=== PATIENT | male | born 1985 ===

== ENCOUNTER 2016-11-06 18:03 | Emergency (ER) | payer OTHER ==
[2016-11-06 18:14] VITALS: BP 128/73; PULSE 80; RESP 16; TEMP 98.7; O2SAT 98
[2016-11-06] MEDS ORDERED: Lidocaine 1% Inj (20ml) IJ STA (18:17)
--- NOTE | 2016-11-06 20:05 | ED PDOC ---
HPI: Wound Care - HPI Time Seen by Provider: 11/06/16 18:15 Chief Complaint (Nursing): Abnormal Skin Integrity Chief Complaint (Provider): laceration History Per: Patient, Operations/Dispatch (0298) Exam Limitations: language barrier Additional Complaint(s): 31yo M in ED for eval of laceration sustained to left 2nd digit(right hand dominant) at 9am at work-states a heavy metal itme fell onto finger sustained laceration unable tot stop bleeding. tetantus is not uptdate. admits to hx of 2 previous injury to same finger- macheta knife to finger and extensor tendon injury when younger. no weakness. no numbness. Past Medical History Reviewed: Historical Data, Nursing Documentation, Vital Signs Vital Signs: Last Vital Signs Temp 98.7 F 11/06/16 18:09 Pulse 80 11/06/16 18:09 Resp 16 11/06/16 18:09 BP 128/73 11/06/16 18:09 Pulse Ox 98 11/06/16 18:09 - Family History Family History: States: No Known Family Hx - Home Medications Home Medications: Ambulatory Orders Medication Instructions Recorded Bacitracin OINT 1 applic TP DAILY #1 tube 11/06/16 Sulfamethoxazole/Trimethoprim 1 tab PO BID #14 tab 11/06/16 [Bactrim DS 800 mg-160 mg] - Allergies Allergies/Adverse Reactions: Allergies Allergy/AdvReac Type Severity Reaction Status Date / Time No Known Allergies Allergy Verified 11/06/16 18:09 Review of Systems ROS Statement: Except As Marked, All Systems Reviewed And Found Negative Musculoskeletal: Positive for: Hand Pain Physical Exam - Reviewed Nursing Documentation Reviewed: Yes Vital Signs Reviewed: Yes - Physical Exam Appears: Positive for: Well, Non-toxic, No Acute Distress Skin: Positive for: Normal Color, Warm, DRY Cardiovascular/Chest: Positive for: Regular Rate, Rhythm Respiratory: Positive for: CNT, Normal Breath Sounds Extremity: Positive for: Other (left hand: 2nd finger PIP laceration 3inch partial thickness no muscle invol no tendon invol no numbness/nueorvasc is intact. active bleeding. mild swelling noted. an exsiting fefomirty noted to finger-mallet finger obvious, subungual hematoma (old) and injury to nail bed( healing) noted. otherwise FROM of digit. ) Neurologic/Psych: Positive for: Alert, Oriented - ECG O2 Sat by Pulse Oximetry: 98 - Radiology X-Ray: Interpreted by Ak X-Ray Interpretation: No Acute Disease Procedure: Wound Repair - Time Performed Time Performed: 20:14 - Time Out Time Out: Side verified, Site verified, Patient ID confirmed, Sterile procedures obs. - Procedure Procedure: Wound Repair: laceration - Consent Obtained Consent obtained: Verbal - Performed by Performed by: Mid-level Provider - Indications Indication(s):: Laceration - Location Finger:: Left, Index Shape:: Curvilinear Dimensions Length cm: 3 Depth:: Epidermis - Anesthetic Technique Anesthetic Technique: Regional block Local/Regional Anesthetic:: Lidocaine 1% (4-5cc) - Wound Examination Wound Examination:: Ecchymosis - Debris Debris:: None - Irrigated Irrigated with ml of normal saline: 150cc with betadine - Complexity Complexity:: Simple (one layer) - Wound repair method Sutures:: # (10), Size (5-0), Type (nylone), Technique (simple interrupted) - Patient tolerated procedure Patient Tolerated Procedure:: Well (given splint and sterile dressing.) Medical Decision Making Medical Decision Making: Pt strongly advised to keep wound and strict instruction provided to pt in [place] and to fiend present in room with pt. advised to have wound check in 3- 4days pt given splint for finger and abx pt advised to not wet wound, keep bandage on wound too tightly and to remove splint to prevent sutures from coming apart. pt understand risk off infection advised if worried about healing to f.u with hand surgery. at this time no concern for tendon involvement. Disposition - Clinical Impression Clinical Impression: Laceration - Patient ED Disposition Is Patient to be Admitted: No Counseled Patient/Family Regarding: Studies Performed, Diagnosis, Need For Followup, Rx Given - Disposition Referrals: Fermin Newman MD [Staff Provider] - Disposition: Routine/Home Disposition Time: 20:18 Condition: STABLE Additional Instructions: Hand surgeon: Fermin Newman MD\ Plastic surgeon in [place], [place] Address: [address], [place] [address] Please keep are dry do not cover wound too tightly, otherwise you will cause too much pressure to area dont infected do not wet wound otherwise you will cause an infection keep the splint on the make sure you don't break apart the sutures if you have swelling sever redness and drainage return to ER take your antibiotics. use bacitracin once daily and use very little return in 3-4 days for wound check if wound becomes infected or you are concerned follow up with the hand surgeon as listed for you Por favor, mantnganse secos no cubra la herida con demasiada fuerza, de lo contrario causar demasiada presi n al barrett no infectada no moleste la herida de lo contrario causar vania infeccin mantenga la frula en el asegrese de no romper las suturas si tiene hinchazn, enrojecimiento y drenaje regresa a ER yony hamlet antibiticos. use bacitracina vania vez al da y utilice muy poco retorno en 3-4 [place] para chequear la herida si la herida se infecta o le preocupa el seguimiento con el cirujano de la mano justina se indica para usted Prescriptions: Bacitracin OINT 1 applic TP DAILY #1 tube Sulfamethoxazole/Trimethoprim [Bactrim DS 800 mg-160 mg] 1 tab PO BID #14 tab Instructions: Care For Your Stitches (ED), Laceration (ED), Finger Laceration ( ED) Forms: [employer] ([place]), [facility] ED School/Work Excuse Print Language: SINGAPOREAN
--- NOTE | 2016-11-07 15:04 | RAD ---
PROCEDURE: Left Hand Radiographs. HISTORY: 2nd digit injiury COMPARISON: None. FINDINGS: BONES: There is no acute displaced fracture or bone destruction. Bone alignment and mineralization are normal. JOINTS: Normal. No osteoarthritic changes. SOFT TISSUES: There is irregularity and defect in the lateral soft tissues overlying the 2nd middle phalanx. OTHER FINDINGS: None. IMPRESSION: Laceration in the 2nd digit in the lateral soft tissues overlying the middle phalanx. No radiopaque foreign body. No acute fracture or dislocation.
== END 2016-11-06 20:34 | disposition home or self-care (01) ==
LOC: H.ER 18:03
DX: S61.211A Laceration without foreign body of left index finger without damage to nail, initial encounter (principal); W20.8XXA Other cause of strike by thrown, projected or falling object, initial encounter; Y99.0 Civilian activity done for income or pay